=== PATIENT | female | born 1975 | race African-American/Black ===

== ENCOUNTER 2019-01-30 21:03 | Emergency (ER) | payer OTHER ==
[~2019-01-30] VITALS: Ht 175.3 cm; Wt 99.8 kg
[~2019-01-30 21:03] MED LIST: NKM; NORCO 5-325 TA1 EACH PO; PENICILLIN V P500 MG PO
--- NOTE | 2019-01-30 21:18 | NUR ---
ED Nurse Note: WAlk-in patient presents with complaint of injury to skin on dorsal foot post pedicure treatment. Patient is A&Ox4 and ambulatory with steady gait. Patint has complaints of pain at site 02/12.
[2019-01-30 21:20] VITALS: BP 182/85
--- NOTE | 2019-01-30 21:25 | Emergency Room Report ---
History of Present Illness General Chief Complaint: Skin Rash/Abscess Source: Patient Present Illness HPI Patient presents with complaints of discomfort to her right foot reports that 2 weeks ago she had a pedicure there was some material that was put on the side of her foot to improve the calluses However the material ended up on the top of the foot and has now caused a secondary burn patient had a large blister on the dorsal part of the foot that has burst however as the swelling and erythema persist Patient comes to the emergency room she has not seen any previous medical care regarding this Denies any fevers or chills pain is worse with touch Allergies: Coded Allergies: No Known Allergies (Unverified , 08/07/12) Patient History Past Medical History: see triage record Last Menstrual Period: 01/2019 Now: No Reviewed Nursing Documentation: PMH: Agreed; PSxH: Agreed Nursing Documentation-PMH Past Medical History: No Stated History Review of Systems All Other Systems: negative except mentioned in HPI Physical Exam Vital Signs Date Time Temp Pulse Resp B/P (MAP) Pulse Ox O2 Delivery O2 Flow Rate FiO2 01/30/19 21:04 98.6 86 16 182/85 (117) 96 Room Air Sp02 EP Interpretation: reviewed, normal General Appearance: well appearing, no apparent distress Head: normocephalic, atraumatic Eyes: bilateral eye PERRL, bilateral eye EOMI ENT: normal pharynx Neck: supple Respiratory: lungs clear, no respiratory distress, no retraction Cardiovascular #1: regular rate, rhythm Gastrointestinal: soft Musculoskeletal: other - Some mild erythema is noted right foot mainly on the dorsal aspect there is an area approximately 2 x 1 cm there appears to, have had a blister formation which is now ruptured, no calf tenderness or swelling Neurologic: alert, oriented x3, responsive Skin: other - As above Lymphatic: no adenopathy Medical Decision Making Diagnostic Impression: Primary Impression: Skin burn Additional Impression: Cellulitis ER Course Given the history exam and presentation multiple differentials and consideration including but not limited to local reaction, cellulitis Patient had broad-spectrum antibiotics initiated blood work is at baseline levels patient will continue with Wound care Antibiotics as prescribed and requires close outpatient follow-up Last Vital Signs Date Time Temp Pulse Resp B/P (MAP) Pulse Ox O2 Delivery O2 Flow Rate FiO2 01/30/19 21:04 98.6 86 16 182/85 (117) 96 Room Air Status: improved Disposition: HOME, SELF-CARE Condition: Improved Scripts Acetaminophen With Codeine (T#3) (TYLENOL #3 TAB*) Y Tab 1 TAB ORAL Q12HR PRN for For Pain, #10 TAB Prov: Luanne Swanson DO 01/30/19 Ibuprofen* (MOTRIN*) 600 Mg Tablet 600 MG ORAL THREE TIMES A DAY, #20 TAB 0 Refills Prov: Luanne Swanson DO 01/30/19 Bacitracin Zinc* (BACITRACIN ZINC*) 1 Each Packet 1 APPLIC TOPIC BID for 7 Days, PACKET Prov: Luanne Swanson DO 01/30/19 Cephalexin* (KEFLEX*) 500 Mg Capsule 500 MG ORAL EVERY 6 HOURS for 7 Days, CAP Prov: Luanne Swanson DO 01/30/19 Additional Instructions: Patient is provided with the discharge instructions notified to follow up with primary doctor in the next 2-3 days otherwise return to the er with any worsening symptoms. Please note that this report is being documented using [employer] technology. This can lead to erroneous entry secondary to incorrect interpretation by the dictating instrument. Luanne Swanson DO Jan 30, 2019 21:25
[2019-01-30] MEDS ORDERED: Bacitracin Oint UD TOPIC ONE (21:30)
[2019-01-30] MEDS ORDERED: cefTRIAXone 1 GM in NS 55 ML IVPB ONE (21:30)
[2019-01-30] MEDS ORDERED: HYDROcodone/Acetamin 5/325 tab ORAL ONE (21:45)
[2019-01-30] MEDS ORDERED: Ketorolac 30mg Inj IV ONE (21:45)
[2019-01-30 21:56] LABS: BASOPHILS % (AUTO) 1.4 % (0.0-2.0); EOSINOPHILS % (AUTO) 1.8 % (0.0-3.0); HEMATOCRIT 38.6 % (37.0-47.0); HEMOGLOBIN 12.8 G/DL (12.0-16.0); LYMPHOCYTES % (AUTO) 30.6 % (20.0-45.0); MEAN CORPUSCULAR VOLUME 94 FL (80-99); MONOCYTES % (AUTO) 7.4 % (1.0-10.0); NEUTROPHILS % (AUTO) 58.9 % (45.0-75.0); PLATELET COUNT 197 K/UL (150-450); RED BLOOD COUNT 4.12 M/UL (4.20-5.40); WHITE BLOOD COUNT 6.2 K/UL (4.8-10.8)
[2019-01-30 22:01] LABS: ANION GAP 7 mmol/L (5-15); BLOOD UREA NITROGEN 10 mg/dL (7-18); CALCIUM 9.1 MG/DL (8.5-10.1); CARBON DIOXIDE 31 MMOL/L (21-32); CHLORIDE 104 MMOL/L (98-107); CREATININE 0.8 MG/DL (0.55-1.30); POTASSIUM 4.5 MMOL/L (3.5-5.1); SODIUM 142 MMOL/L (136-145)
[2019-01-30 22:06] LABS: ALANINE AMINOTRANSFERASE 18 U/L (12-78); ALBUMIN 3.4 G/DL (3.4-5.0); ALBUMIN/GLOBULIN RATIO 0.9 (1.0-2.7); ALKALINE PHOSPHATASE 43 U/L (46-116); ASPARTATE AMINO TRANSFERASE 19 U/L (15-37); BILIRUBIN,TOTAL 0.1 MG/DL (0.2-1.0)
[2019-01-30] MEDS ORDERED: CEPHALEXIN500 MG ORAL (22:21)
[2019-01-30] MEDS ORDERED: BACITRACIN ZIN1 EACH TOPIC (22:21)
[2019-01-30] MEDS ORDERED: IBUPROFEN600 MG ORAL (22:22)
[2019-01-30] MEDS ORDERED: ACETAMINOPHEN-1 EAC1 ORAL (22:22)
[2019-01-30 22:35] VITALS: BP 182/85
--- NOTE | 2019-01-30 22:35 | NUR ---
ED Nurse Note: Patient cleared for discharge by ERMD, patient is ambulatory with steady gait, has no s/s of acute distress and verbalizes understanding of discharge instructions. Patient departed with all belongings accompanied significant other.
== END 2019-01-30 22:36 | disposition home or self-care (01) ==
LOC: EMR 21:17
DX: T25.021A Burn of unspecified degree of right foot, initial encounter (principal); T31.0 Burns involving less than 10% of body surface; L03.115 Cellulitis of right lower limb; X08.8XXA Exposure to other specified smoke, fire and flames, initial encounter; Y92.89 Other specified places as the place of occurrence of the external cause
CPT/HCPCS: 36415; 80053; 85025; 96365; 96375; J0696; J1885; Z7502; 99284

== ENCOUNTER 2019-02-28 21:47 | Emergency (ER) | payer OTHER ==
[~2019-02-28] VITALS: Ht 175.3 cm; Wt 99.8 kg
[~2019-02-28 21:47] MED LIST changes: +ACETAMINOPHEN-1 EAC1 ORAL; +BACITRACIN ZIN1 EACH TOPIC; +CEPHALEXIN500 MG ORAL; +IBUPROFEN600 MG ORAL
--- NOTE | 2019-02-28 21:54 | NUR ---
ED Nurse Note: Patient presents with complaints of chest pain, and a lesion at her left breast.
[2019-02-28] MEDS ORDERED: ACETAMINOPHEN-1 EAC1 ORAL (22:13)
[2019-02-28] MEDS ORDERED: IBUPROFEN600 MG ORAL (22:13)
[2019-02-28] MEDS ORDERED: BACTRIM DS TAB1 EAC1 ORAL (22:13)
[2019-02-28 22:15] VITALS: BP 153/76
[2019-02-28] MEDS ORDERED: Tylenol #3 tab (300mg/30mg) ORAL ONE (22:15)
--- NOTE | 2019-02-28 22:18 | Emergency Room Report ---
History of Present Illness General Chief Complaint: General Complaint Source: Patient Present Illness HPI Disclaimer: Please note that this report is being documented using [employer] technology. This can lead to erroneous entry secondary to incorrect interpretation by the dictating instrument. HPI: This is a 43-year-old otherwise healthy female presenting for evaluation of painful lump on the left breast. Symptoms began 2 days ago. She cannot recall specific injury, scratch, bite but she has had other insect bites over her abdomen over the past few weeks. Denies any drainage no pain or swelling over the nipples, no drainage from the nipples. She states it is difficult to sleep on her side because of the discomfort which is why she came in today. Has been using ibuprofen at home without significant relief. Denies any shortness of breath. Notes pain over the area with chest wall movements. Otherwise no other complaints. PMH: Denies PSH: Denies Allergies: Denies Social Hx: Tobacco use. Social alcohol use Allergies: Coded Allergies: No Known Allergies (Unverified , 08/07/12) Patient History Last Menstrual Period: 02/26/19 Now: No Nursing Documentation-PMH Past Medical History: No Stated History Review of Systems All Other Systems: negative except mentioned in HPI Physical Exam Vital Signs Date Time Temp Pulse Resp B/P (MAP) Pulse Ox O2 Delivery O2 Flow Rate FiO2 02/28/19 21:54 99.7 83 18 153/76 (101) 98 Room Air General: Awake and alert, no acute distress HEENT: NC/AT. EOMI. Chest Wall: Tender to palpation over the lower sternum where there is induration and erythema. Cardiovascular: RRR. S1 and S2 normal. No murmur appreciated Resp: Normal work of breathing. No cough, wheezing or crackles appreciated Abdomen: Abdomen is soft, nondistended. Nontender Skin: Induration and erythema over the lower sternum in the midline on over the left breast. No fluctuance, no mass palpable. Area is warm to the touch. No drainage. MSK: Normal tone and bulk. Moving all extremities. No obvious deformity. Neuro: Awake and alert. Mentating appropriately. Medical Decision Making Diagnostic Impression: Primary Impression: Cellulitis ER Course 43-year-old female presents for evaluation of painful lump over the chest and the left breast present for 2 to 3 days. The patient appears to have a superficial cellulitis that is not actively draining and no evidence of deep space inspection. No ischemic changes on EKG. Will treat with antibiotics and pain medications. The patient will schedule an appointment with her PMD later this week. We discussed reasons to return to the emergency department. EKG Diagnostic Results EKG Time: 22:19 Rate: normal Rhythm: NSR ST Segments: no acute changes Other Impression Sinus rhythm, normal axis, normal intervals, no ST segment changes. Rhythm Strip Diag. Results Rhythm Strip Time: 22:19 EP Interpretation: yes Rate: 70s Rhythm: NSR, no PVC's, no ectopy Last Vital Signs Date Time Temp Pulse Resp B/P (MAP) Pulse Ox O2 Delivery O2 Flow Rate FiO2 02/28/19 21:54 99.7 83 18 153/76 (101) 98 Room Air Disposition: HOME, SELF-CARE Condition: Stable Scripts Diphenhydramine HCl (Benadryl) 25 Mg Capsule 25 MG PO TID for 5 Days, #20 CAP Prov: Solomon Townsend MD 02/28/19 Trimethoprim/Sulfamethoxazole 160/800* (BACTRIM DS TABLET*) 1 Each Tablet 1 TAB ORAL Q12H, #14 TAB 0 Refills Prov: Solomon Townsend MD 02/28/19 Acetaminophen With Codeine (T#3) (TYLENOL #3 TAB*) Y Tab 1 TAB ORAL Q12HR PRN for For Pain, #10 TAB Prov: Solomon Townsend MD 02/28/19 Ibuprofen* (MOTRIN*) 600 Mg Tablet 600 MG ORAL THREE TIMES A DAY, #20 TAB 0 Refills Prov: Solomon Townsend MD 02/28/19 Referrals: Sukhdeep Perry. [facility] Patient Instructions: Cellulitis Additional Instructions: He will be treated for a skin infection over the left breast with antibiotics. Please return to the emergency department if symptoms do not begin to improve over the next few days or if you develop high fevers, draining from the breast, draining from the nipples or worsening pain/discomfort. Please call your primary doctor and discuss this emergency department visit and establish a visit for reevaluation within the next week. Solomon Townsend MD Feb 28, 2019 22:18
[2019-02-28] MEDS ORDERED: BENADRYL25 M3 PO (22:27)
--- NOTE | 2019-02-28 22:37 | NUR ---
ED Nurse Note: Patient cleared for discharge, has no s/s of acute distress. Patient ID band removed. Patient verbalized understanding of discharge instructions and departed with all belongings accompanied by her significant other.
[2019-02-28 22:42] VITALS: BP 153/76
--- NOTE | 2019-03-03 16:53 | Cardiology Report ---
APPROVED REPORT EKG Measurement Heart [id number] Normal sinus rhythm Normal ECG
== END 2019-02-28 22:37 | disposition home or self-care (01) ==
LOC: EMR 22:35
DX: L03.313 Cellulitis of chest wall (principal); F17.200 Nicotine dependence, unspecified, uncomplicated
CPT/HCPCS: 93005; Z7502; 99282